=== PATIENT | female | born 1940 | race African-American/Black ===

== ENCOUNTER → 2020-11-10 | Outpatient (CLI) | payer MEDICARE ==
--- NOTE | 2020-11-10 15:30 | NM ---
EXAMINATION TYPE: NM bone scan whole body DATE OF EXAM: 11/10/2020 COMPARISON: MRI right shoulder 10/08/2020 HISTORY: Shoulder pain Delayed whole-body scanning was performed following the injection of 23.3 mCi Tc 99m MDP. Images acq uired 3 hours post injection. FINDINGS: Report from outside MRI is unavailable. Findings consistent with impingement and rotator cuff tear ar e noted. Bone scan shows uptake in the bilateral shoulders, wrists, hands, knees, right ankle, foot, sternocla vicular joints left greater than right. Some uptake is noted at the greater trochanters. There may be some mild hydronephrosis or partial UPJ obstruction involving the right kidney which is somewhat low er in the abdomen within the left. Uptake in the spine is likely degenerative. No abnormal increased or decreased uptake to suggest metastatic disease. IMPRESSION: Probable degenerative changes. Additional findings above.
== END | disposition home or self-care (01) ==
LOC: RADNMMAIN 10:56
PROVIDERS: ATTEND Orthopaedic Surgery
DX: M25.511 Pain in right shoulder (principal)
CPT/HCPCS: 78306; A9503